=== PATIENT | female | born 1945 | race Caucasian/White ===

== ENCOUNTER 2018-01-24 07:13 | Day surgery (SDC) | payer OTHER ==
[~2018-01-24] VITALS: Ht 149.9 cm; Wt 53.1 kg
[~2018-01-24 07:13] MED LIST: CALC-724 PO; CHOL200013 PO; CINN500C PO; COPPER PO; CYAN50003 PO; KRIL500C PO; MAGN250T2 PO; MONT10TA24 PO; MULT-1203 PO; PRIMROSE PO; RIBO100T3 PO; SODIUM CHLORIDE 0.9% 1000ML 1,000 ML IV ONE; UBID50TA3 PO; VIT1CAPS21 PO; VIT1CAPS25 PO; VITA1CAP PO; ZINC50TA64 PO
[2018-01-24 07:31] VITALS: BP 134/71
[2018-01-24] MEDS ORDERED: PANT40TA25 PO (08:06)
[2018-01-24] MEDS ORDERED: PROPOFOL 10 MG/ML 20ML VIAL IV ONE (08:58)
[2018-01-24 09:17] VITALS: BP 88/42
== END 2018-01-24 09:55 | disposition home or self-care (01) ==
LOC: DAH 07:13
PROVIDERS: ATTEND Internal Medicine Gastroenterology
DX: Z12.11 Encounter for screening for malignant neoplasm of colon (principal); K21.9 Gastro-esophageal reflux disease without esophagitis; D64.89 Other specified anemias; M19.90 Unspecified osteoarthritis, unspecified site; M54.5 Low back pain; Z98.890 Other specified postprocedural states; Z90.710 Acquired absence of both cervix and uterus; Z87.891 Personal history of nicotine dependence; Z79.899 Other long term (current) drug therapy; Z82.49 Family history of ischemic heart disease and other diseases of the circulatory system
CPT/HCPCS: A4606; G0121; J2704; J7030

== ENCOUNTER → 2018-10-17 | Outpatient (CLI) | payer OTHER ==
[~2018-10-17] MED LIST changes: -COPPER PO; +PANT40TA25 PO; -SODIUM CHLORIDE 0.9% 1000ML 1,000 ML IV ONE
[2018-10-17 11:29] LABS: CREATININE 0.8 mg/dL (0.5-1.5)
== END | disposition home or self-care (01) ==
LOC: LAB 10:39
PROVIDERS: ATTEND Internal Medicine
DX: M43.22 Fusion of spine, cervical region (principal)
CPT/HCPCS: 36415; 82565; 84520

== ENCOUNTER → 2018-10-28 | Outpatient (CLI) | payer OTHER ==
[~2018-10-28] MED LIST changes: +IOHEXOL-350 50ML VIAL IV ONE
== END | disposition home or self-care (01) ==
LOC: OIH 09:48
PROVIDERS: ATTEND Internal Medicine
DX: M48.02 Spinal stenosis, cervical region (principal); N20.0 Calculus of kidney; M41.80 Other forms of scoliosis, site unspecified; M47.819 Spondylosis without myelopathy or radiculopathy, site unspecified; R13.10 Dysphagia, unspecified; M43.22 Fusion of spine, cervical region; I70.0 Atherosclerosis of aorta; N32.89 Other specified disorders of bladder
CPT/HCPCS: 72127; 74178; Q9967

== ENCOUNTER → 2019-01-01 | Outpatient (CLI) | payer OTHER ==
[~2019-01-01] MED LIST changes: -IOHEXOL-350 50ML VIAL IV ONE; +OCUVITE SOFTGE1 EACH PO; -VIT1CAPS21 PO
== END | disposition home or self-care (01) ==
LOC: RAH 11:08
PROVIDERS: ATTEND Internal Medicine
DX: Z12.31 Encounter for screening mammogram for malignant neoplasm of breast (principal)
CPT/HCPCS: 77067

== ENCOUNTER → 2020-09-27 | Outpatient (CLI) | payer OTHER ==
[~2020-09-27] MED LIST changes: +CALC-1158 PO; -CALC-724 PO; -MONT10TA24 PO; +MONT10TA96 PO; -PANT40TA25 PO; +PANT40TA54 PO
== END | disposition home or self-care (01) ==
LOC: RAH 11:21
PROVIDERS: ATTEND Internal Medicine
DX: R05 Cough (principal); M41.84 Other forms of scoliosis, thoracic region
CPT/HCPCS: 71046

== ENCOUNTER → 2022-05-08 | Outpatient (CLI) | payer OTHER ==
[~2022-05-08] MED LIST changes: -MAGN250T2 PO; +MAGN250T35 PO; +MONT-39 PO; -MONT10TA96 PO
== END | disposition home or self-care (01) ==
LOC: RAH 08:59
PROVIDERS: ATTEND Internal Medicine
DX: F03.90 Unspecified dementia, unspecified severity, without behavioral disturbance, psychotic disturbance, mood disturbance, and anxiety (principal)
CPT/HCPCS: 70551

== ENCOUNTER 2022-06-14 17:09 | Observation (INO) | payer OTHER ==
[~2022-06-14] VITALS: Ht 142.2 cm; Wt 56.6 kg
[2022-06-14 17:48] LABS: BASOPHILS % (AUTO) 1.5 % (0.0-5.0); EOSINOPHILS % (AUTO) 3.2 % (0.0-8.0); LYMPHOCYTES % (AUTO) 38.3 % (21.0-51.0); MEAN CORPUSCULAR HEMOGLOBIN 29.6 pg (27.0-33.0); MEAN CORPUSCULAR HGB CONC 33.3 g/dL (32.0-36.0); MEAN CORPUSCULAR VOLUME 88.7 fL (79-99); MONOCYTES % (AUTO) 9.5 % (3.0-13.0); NEUTROPHILS % (AUTO) 47.2 % (40.0-77.0); PLATELET COUNT (AUTO) 216 K/uL (130-400); RED BLOOD CELL COUNT(AUTO) 4.06 MIL/uL (4.00-5.50); RED CELL DISTRIBUTION WIDTH 13.4 % (11.0-15.5); WHITE BLOOD COUNT (AUTO) 5.9 K/uL (4.8-10.8)
[2022-06-14 17:58] LABS: CREATININE 0.8 mg/dL (0.5-1.5); POTASSIUM 3.8 mmol/L (3.5-5.1)
[2022-06-14 18:00] LABS: ALBUMIN 3.9 g/dL (3.5-5.0); BILIRUBIN,DIRECT 0.1 mg/dL (0.0-0.3); TOTAL PROTEIN, SERUM 6.9 g/dL (6.0-8.3)
[2022-06-14] MEDS ORDERED: IOHEXOL 350 MG/ML 100ML INFUS..BTL IV ONE (18:34)
[2022-06-14] MEDS ORDERED: ONDANSETRON 4MG INJ IVP PRN (19:30)
[2022-06-14] MEDS: DEXTROSE 5 %-0.45 % NACL 1,000 ML IV SCH (20:27)
[2022-06-14] MEDS ORDERED: CEFTRIAXONE 1G VIAL IVP SCH (21:00)
[2022-06-14] MEDS ORDERED: FAMOTIDINE 20MG TAB PO SCH (21:00)
[2022-06-14] MEDS: METRONIDAZOLE 250MG/50ML 50 ML IV SCH (21:23)
[2022-06-14 21:26] LABS: BASOPHILS % (AUTO) 1.7 % (0.0-5.0); LYMPHOCYTES % (AUTO) 41.6 % (21.0-51.0); MEAN CORPUSCULAR HEMOGLOBIN 29.3 pg (27.0-33.0); MEAN CORPUSCULAR HGB CONC 33.2 g/dL (32.0-36.0); MEAN CORPUSCULAR VOLUME 88.1 fL (79-99); MONOCYTES % (AUTO) 9.6 % (3.0-13.0); NEUTROPHILS % (AUTO) 42.7 % (40.0-77.0); PLATELET COUNT (AUTO) 209 K/uL (130-400); RED BLOOD CELL COUNT(AUTO) 3.86 MIL/uL (4.00-5.50); RED CELL DISTRIBUTION WIDTH 13.5 % (11.0-15.5); WHITE BLOOD COUNT (AUTO) 5.3 K/uL (4.8-10.8)
[2022-06-14 21:42] LABS: CREATININE 0.9 mg/dL (0.5-1.5); POTASSIUM 3.7 mmol/L (3.5-5.1)
[2022-06-14 21:47] LABS: ALBUMIN 3.6 g/dL (3.5-5.0); BILIRUBIN,DIRECT 0.1 mg/dL (0.0-0.3); TOTAL PROTEIN, SERUM 6.4 g/dL (6.0-8.3)
[2022-06-14] MEDS ORDERED: COFF1CAP2 PO (23:27)
[2022-06-14] MEDS ORDERED: VIT1CAPS5 PO (23:27)
[2022-06-14] MEDS ORDERED: DOCU-116 PO (23:27)
[2022-06-14] MEDS ORDERED: SIMV10TA97 PO (23:27)
[2022-06-14] MEDS ORDERED: GABA300C PO (23:27)
[2022-06-14] MEDS ORDERED: MEMA10TA55 PO (23:27)
[2022-06-14] MEDS ORDERED: EVEP1CAP PO (23:27)
[2022-06-14] MEDS ORDERED: CA C1TAB74 PO (23:27)
[2022-06-14] MEDS ORDERED: FAMO-136 PO (23:27)
[2022-06-14] MEDS ORDERED: VITA15LO2 PO (23:27)
[2022-06-14] MEDS ORDERED: METO5TAB2 PO (23:27)
[2022-06-14] MEDS ORDERED: PANT40TA54 PO (23:27)
[2022-06-14] MEDS ORDERED: OMEP20TA20 PO (23:27)
[2022-06-14] MEDS ORDERED: ASCO100T12 PO (23:27)
[2022-06-15 00:02] VITALS: BP 149/83
[2022-06-15] MEDS ORDERED: CA C1TAB74 PO (00:57)
[2022-06-15 03:02] VITALS: BP 160/83
[2022-06-15] MEDS: METRONIDAZOLE 250MG/50ML 50 ML IV SCH (05:36)
[2022-06-15 06:12] LABS: BASOPHILS % (AUTO) 2.1 % (0.0-5.0); EOSINOPHILS % (AUTO) 4.5 % (0.0-8.0); HEMATOCRIT 34.6 % (36-48); LYMPHOCYTES % (AUTO) 37.4 % (21.0-51.0); MEAN CORPUSCULAR HEMOGLOBIN 29.5 pg (27.0-33.0); MEAN CORPUSCULAR HGB CONC 32.9 g/dL (32.0-36.0); MEAN CORPUSCULAR VOLUME 89.4 fL (79-99); MONOCYTES % (AUTO) 11.7 % (3.0-13.0); NEUTROPHILS % (AUTO) 43.9 % (40.0-77.0); PLATELET COUNT (AUTO) 213 K/uL (130-400); RED BLOOD CELL COUNT(AUTO) 3.87 MIL/uL (4.00-5.50); RED CELL DISTRIBUTION WIDTH 13.2 % (11.0-15.5); WHITE BLOOD COUNT (AUTO) 5.3 K/uL (4.8-10.8)
[2022-06-15 06:22] LABS: CREATININE 0.9 mg/dL (0.5-1.5); POTASSIUM 3.7 mmol/L (3.5-5.1)
[2022-06-15 06:26] LABS: ALBUMIN 3.5 g/dL (3.5-5.0); BILIRUBIN,DIRECT 0.1 mg/dL (0.0-0.3); TOTAL PROTEIN, SERUM 6.3 g/dL (6.0-8.3)
[2022-06-15] MEDS: DEXTROSE 5 %-0.45 % NACL 1,000 ML IV SCH (07:50)
[2022-06-15 08:00] VITALS: BP 167/98
[2022-06-15] MEDS ORDERED: PANTOPRAZOLE 40 MG TAB DR PO SCH (09:00)
[2022-06-15 11:48] VITALS: BP 152/84
[2022-06-15] MEDS ORDERED: COMPOUND IV MISC 1 EACH IVSOLN MISC PRN (12:00)
== END 2022-06-15 12:05 | disposition home or self-care (01) ==
LOC: EDH 17:09 → EDHIP 17:49 → 3BH 23:11
PROVIDERS: ADMIT Internal Medicine; ATTEND Internal Medicine
DX: R10.9 Unspecified abdominal pain (principal); K21.9 Gastro-esophageal reflux disease without esophagitis; M19.90 Unspecified osteoarthritis, unspecified site; J44.9 Chronic obstructive pulmonary disease, unspecified; E03.9 Hypothyroidism, unspecified; E78.5 Hyperlipidemia, unspecified; F03.90 Unspecified dementia, unspecified severity, without behavioral disturbance, psychotic disturbance, mood disturbance, and anxiety; R11.2 Nausea with vomiting, unspecified; Z79.899 Other long term (current) drug therapy
CPT/HCPCS: 96372; 96361 ×2; 96365; 96366 ×2; 82150 ×2; 80076 ×3; 80048 ×3; 83690 ×3; 85025 ×3; 36415 ×2; 74177; G0378 ×18; G0379; J7042; J0696; J3490; Q9967

== ENCOUNTER 2023-08-26 08:40 | Emergency (ER) | payer OTHER ==
[~2023-08-26] VITALS: Ht 147.3 cm; Wt 54.0 kg
[~2023-08-26 08:40] MED LIST changes: +ASCO100T12 PO; +CA C1TAB74 PO; -CALC-1158 PO; -CHOL200013 PO; -CINN500C PO; +COFF1CAP2 PO; -CYAN50003 PO; +DOCU-116 PO; +EVEP1CAP PO; +FAMO-136 PO; +GABA300C PO; -KRIL500C PO; -MAGN250T35 PO; +MEMA10TA55 PO; +METO5TAB2 PO; -MONT-39 PO; -MULT-1203 PO; -OCUVITE SOFTGE1 EACH PO; +OMEP20TA20 PO; -PRIMROSE PO; -RIBO100T3 PO; +SIMV10TA97 PO; -UBID50TA3 PO; -VIT1CAPS25 PO; +VIT1CAPS5 PO; +VITA15LO2 PO; -VITA1CAP PO; -ZINC50TA64 PO
[2023-08-26] MEDS ORDERED: ACETAMINOPHEN 500 MG TABLET PO ONE (10:00)
[2023-08-26 10:14] LABS: BASOPHILS # (AUTO) 0.07 K/uL (0.00-0.20); BASOPHILS % (AUTO) 1.2 % (0.0-5.0); EOSINOPHILS # (AUTO) 0.14 K/uL (0.00-0.70); EOSINOPHILS % (AUTO) 2.5 % (0.0-8.0); HEMATOCRIT 33.9 % (36-48); IMMATURE GRANULOCYTE ABSOLUTE 0.01 K/uL (0-1); LYMPHOCYTES # (AUTO) 1.8 K/uL (1.0-4.8); LYMPHOCYTES % (AUTO) 30.9 % (21.0-51.0); MEAN CORPUSCULAR HEMOGLOBIN 29.2 pg (27.0-33.0); MEAN CORPUSCULAR VOLUME 88.5 fL (79-99); MONOCYTES # (AUTO) 0.7 K/uL (0.1-1.0); MONOCYTES % (AUTO) 11.4 % (3.0-13.0); NEUTROPHILS # (AUTO) 3.1 K/uL (1.8-7.7); NEUTROPHILS % (AUTO) 53.8 % (40.0-77.0); PLATELET COUNT (AUTO) 221 K/uL (130-400); RED BLOOD CELL COUNT(AUTO) 3.83 MIL/uL (4.00-5.50); WHITE BLOOD COUNT (AUTO) 5.7 K/uL (4.8-10.8)
[2023-08-26 10:31] LABS: CREATININE 0.8 mg/dL (0.5-1.5); POTASSIUM 4.1 mmol/L (3.5-5.1)
[2023-08-26 10:35] LABS: ALBUMIN 3.5 g/dL (3.5-5.0); BILIRUBIN,TOTAL 0.7 mg/dL (0.2-1.0); TOTAL PROTEIN, SERUM 6.5 g/dL (6.0-8.3)
[2023-08-26 12:22] VITALS: BP 124/68; PULSE 67; RESP 18; O2SAT 96
== END 2023-08-26 13:11 | disposition home or self-care (01) ==
LOC: EDH 08:40
DX: S22.32XA Fracture of one rib, left side, initial encounter for closed fracture (principal); F03.90 Unspecified dementia, unspecified severity, without behavioral disturbance, psychotic disturbance, mood disturbance, and anxiety; Z79.899 Other long term (current) drug therapy; W18.39XA Other fall on same level, initial encounter; Y93.K1 Activity, walking an animal; Y92.89 Other specified places as the place of occurrence of the external cause; Y99.8 Other external cause status
CPT/HCPCS: 36415; 71045; 80053; 82270; 85025

== ENCOUNTER 2025-07-12 15:41 | Emergency (ER) | payer OTHER ==
[~2025-07-12] VITALS: Ht 147.3 cm; Wt 52.2 kg
[~2025-07-12 15:41] MED LIST changes: +MEMA10TA21 PO; -MEMA10TA55 PO
[2025-07-12 16:19] LABS: IMMATURE GRANULOCYTE ABSOLUTE 0.02 K/uL (0-1); NUCLEATED RED BLOOD CELLS 0.0 % (0.0-0.19); PLATELET COUNT (AUTO) 238 K/uL (130-400); RED BLOOD CELL COUNT(AUTO) 3.64 MIL/uL (4.00-5.50); RED CELL DISTRIBUTION WIDTH 13.6 % (11.0-15.5); WHITE BLOOD COUNT (AUTO) 6.4 K/uL (4.8-10.8)
[2025-07-12 16:30] LABS: CREATININE 0.7 mg/dL (0.5-1.0); GLOMERULAR FILTR. RATE CALC 87.0 mL/min (>90); GLUCOSE,RANDOM 87.0 mg/dL (70-105); SODIUM SERUM 144.0 mmol/L (136-145); UREA NITROGEN, BLOOD 27.0 mg/dL (7-18)
--- NOTE | 2025-07-12 16:31 | NUR ---
PT STATES PT HAS ABD PAIN DUE TO CRYING FOR THE PAST FEW DAYS. PT STATES PT IS NONVERBAL DUE TO DEMENTIA. WHEN DOING PRIMARY ASSESSMENT, PT SHOOK HER HEAD AND STATED, "NO" WHEN ASKED IF SHE FELT PAIN IN HER STOMACH. PT STATED SHE NEEDED TO PASS STOOL AT THIS TIME AND BEDPAN WAS OFFERED. PT REFUSED AND STATED, "I THINK YOU NEED TO TAKE HER TO THE RESTROOM." PT EDUCATED ON IMPORTANCE OF USING A BEDPAN OR BEDSIDE COMMODE DUE TO FALL RISK AND UNSTEADY GAIT. PT REFUSED BEDPAN BUT ACCEPTED BEDSIDE COMMODE. BEDSIDE COMMODE PLACED IN ROOM AND PT TRANSFERRED TO COMMODE WITH ASSISTANCE. PT STATES HE WANTS THE PT TO STAY IN BEDSIDE COMMODE FOR A FEW MINUTES SHE IS TELLING HIM SHE NEEDS TO USE THE RESTROOM.
[2025-07-12 16:36] LABS: ASPARTATE AMINOTRANSFERASE 18.0 U/L (10-37); TOTAL PROTEIN, SERUM 6.4 g/dL (6.0-8.3)
[2025-07-12 17:29] LABS: ADD UA MICROSCOPIC YES; APPEARANCE,URINE CLOUDY (CLEAR); GLUCOSE, URINE (UA) NEGATIVE (NEGATIVE); LEUKOCYTE ESTERASE ,URINE NEGATIVE Leu/uL (NEGATIVE); NITRATE,URINE 1+ (NEGATIVE); OCCULT BLOOD,URINE NEGATIVE (NEGATIVE)
[2025-07-12 17:39] LABS: SQUAMOUS EPITHELIAL CELL,UR RARE /HPF (0-2); UNCLASSIFIED CRYSTAL 14 /HPF (None Seen)
--- NOTE | 2025-07-12 17:52 | ERN ---
General Chief Complaint: Abdominal Pain Stated Complaint: ABDOMINAL PAIN Time Seen by MD: 15:42 Source: patient History of Present Illness Initial Comments Patient is a an 79-year-old female coming in to be evaluated for abdominal pain. Per has been patient has a history of dementia but he states that she has been having abdominal pain for a couple of days. Allergies: Coded Allergies: pregabalin (Verified Allergy, Unknown, 06/14/22) thimerosal (Verified Allergy, Unknown, 04/02/14) Home Meds Reported Medications Ca Cmb 1/Vit D3/B-6/FA/B12/Av (Vitamin D3-Aloe 1,000 Unit Tab) 1 Each Tablet, 1 EACH PO DAILY, TAB 06/15/22 Coffee/Theanine/Superoxide Dis (Neuriva De-Stress Capsule) 1 Each Capsule, 1 EACH PO AD, CAP 06/14/22 Vitamin A/Vit C/Zinc/Propolis (Zinc 15 mg Lozenges) 15 Mg Lozenge, 15 MG PO DAILY, ADALBERTO 06/14/22 Ascorbic Acid (Vitamin C) 100 Mg Tablet, 100 MG PO DAILY, TAB 06/14/22 Evepr/Linoleic/Gamolenic/Cranb (Evening Fenton Oil Softgel) 1 Each Capsule, 1 EACH PO DAILY, CAP 06/14/22 Vit A/Vit C/Vit E/Zinc/Copper (Preservision Areds Softgel) 1 Each Capsule, 1 EACH PO AD, CAP 06/14/22 Famotidine (Pepcid) 20 Mg Tablet, 20 MG PO DAILY, TAB 06/14/22 Docusate Sodium (Colace) 100 Mg Capsule, 100 MG PO DAILY PRN for CONSTIPATION, CAP 06/14/22 Gabapentin (Neurontin) 300 Mg Capsule, 300 MG PO TID, CAP 06/14/22 Memantine HCl (Memantine HCl) 10 Mg Tablet, 10 MG PO DAILY, TAB 06/14/22 Metoclopramide HCl (Metoclopramide HCl) 5 Mg Tablet, 5 MG PO TIDAC, TAB 06/14/22 Omeprazole (Omeprazole) 20 Mg Tablet.dr, 20 MG PO DAILY, TAB 06/14/22 Pantoprazole Sodium (Pantoprazole Sodium) 40 Mg Tablet.dr, 40 MG PO DAILY, TAB 06/14/22 Simvastatin (Simvastatin) 10 Mg Tablet, 10 MG PO HS, TAB 06/14/22 Past Medical History Past Medical History: Dementia Medical History Other: CHRONIC BACK PAIN Past Surgical History: Hysterectomy Surgical History Other: BACK SX ROS Dictation CONSTITUTIONAL: No chills, no fever, no weakness, no diaphoresis, no malaise. HEAD/FACE: No signs of trauma. EENT: No eye pain, no blurred vision, no tearing, no double vision, no ear pain, no ear discharge, no nose pain, no nasal congestion, no throat pain, no throat swelling, no mouth pain. RESPIRATORY: No cough, no orthopnea, no SOB, no stridor, no wheezing. CARDIOVASCULAR: No chest pain, no edema, no palpitations, no syncope. GASTROINTESTINAL/ABDOMINAL: No abdominal pain, no constipation, no diarrhea, no nausea, no vomiting. GENITOURINARY: No abnormal discharge, no dysuria, no frequent urination, no hematuria. No complaints of pain in the genitals. MUSCULOSKELETAL: No back pain, no gout, no joint pain, no joint swelling, no muscle pain, no muscle stiffness, no neck pain. INTEGUMENTARY: No change in color, no change in hair/nails, no dryness, no lesion, no lumps, no rash. NEUROLOGICAL/PSYCH: No anxiety, not depressed, no emotional problem, no headache, no numbness, no pre-existing deficit, no history of seizures, no tremors, no weakness. HEMATOLOGIC/LYMPHATIC: Not anemic, no history of blood clots, no apparent bleeding, no bruising, glands not swollen. All Systems Negative, Except as Noted. Physical Exam Physical Exam Dictation VITAL SIGNS: Reviewed. GENERAL APPEARANCE: Alert, oriented x3, no acute distress, obese. HEAD AND FACE: Non-traumatic. EYES: PERRL, pink conjunctivas, eyelid no trauma, anterior chamber clear. EARS: Pinnas intact and no signs of trauma or erythema. Ear canals clear and no discharge. TMs no erythema. NOSE: No discharge, no bleeding. OROPHARYNX: Mouth normal, teeth no caries, tongue pink. Pharynx clear, no erythema. Tonsils no exudates, no abscesses noted. Mucous membrane moist. NECK: Supple, non-tender, no thyromegaly, no masses, no JVD, no bruits. BREAST: Deferred. CHEST: No tenderness, no crepitus, no paradoxical movement, no retractions. LUNGS: Clear, well-ventilated, symmetric, no rales, no wheezing, no rhonchi, no stridor, good breath sounds bilaterally. HEART: Regular rate, regular rhythm, no murmur, no gallops. VASCULAR: No peripheral edema. ABDOMEN: Soft, positive bowel sounds, nondistended, no guarding, nontender, no rebound, no masses no hepatomegaly, no splenomegaly, no Rader's sign, no hernias. RECTAL: Deferred. GENITAL: Deferred. NEUROLOGICAL: Normal speech, gross motor function intact, gross sensory function intact. MUSCULOSKELETAL: Neck nontender, full range of motion, back nontender, full range of motion. EXTREMITIES: Nontender, full range of motion. SKIN: Color pink, dry, no turgor, no rash, no lacerations, no abrasions, no contusions. LYMPHATICS: Deferred. Results Laboratory and Microbiology Lab and Micro Result Laboratory Tests Test 07/12/25 16:13 07/12/25 17:20 White Blood Count 6.4 K/uL (4.8-10.8) Red Blood Count 3.64 MIL/uL (4.00-5.50) L Hemoglobin 11.0 g/dL (12.0-16.0) L Hematocrit 33.6 % (36-48) L Mean Corpuscular Volume 92.3 fL (79-99) Mean Corpuscular Hemoglobin 30.2 pg (27.0-33.0) Mean Corpuscular Hemoglobin Concent 32.7 g/dL (32.0-36.0) Red Cell Distribution Width 13.6 % (11.0-15.5) Platelet Count 238 K/uL (130-400) Mean Platelet Volume 9.6 fL (7.5-10.5) Immature Granulocyte % (Auto) 0.3 % (0-1) Neutrophils (%) (Auto) 50.9 % (40.0-77.0) Lymphocytes (%) (Auto) 33.2 % (21.0-51.0) Monocytes (%) (Auto) 10.7 % (3.0-13.0) Eosinophils (%) (Auto) 3.3 % (0.0-8.0) Basophils (%) (Auto) 1.6 % (0.0-5.0) Neutrophils # (Auto) 3.3 K/uL (1.8-7.7) Lymphocytes # (Auto) 2.1 K/uL (1.0-4.8) Monocytes # (Auto) 0.7 K/uL (0.1-1.0) Eosinophils # (Auto) 0.21 K/uL (0.00-0.70) Basophils # (Auto) 0.10 K/uL (0.00-0.20) Absolute Immature Granulocyte (auto 0.02 K/uL (0-1) Nucleated Red Blood Cells 0.0 % (0.0-0.19) Sodium Level 144 mmol/L (136-145) Potassium Level 3.6 mmol/L (3.5-5.1) Chloride Level 107 mmol/L (101-111) Carbon Dioxide Level 30 mmol/L (21-32) Blood Urea Nitrogen 27 mg/dL (7-18) H Creatinine 0.7 mg/dL (0.5-1.0) Glomerular Filtration Rate Calc 87 mL/min (>90) Random Glucose 87 mg/dL (70-105) Total Calcium 8.7 mg/dL (8.5-10.1) Total Bilirubin 0.3 mg/dL (0.2-1.0) Aspartate Amino Transf (AST/SGOT) 18 U/L (10-37) Alanine Aminotransferase (ALT/SGPT) 23 U/L (12-78) Alkaline Phosphatase 72 U/L (50-136) Total Protein 6.4 g/dL (6.0-8.3) Albumin 3.5 g/dL (3.5-5.0) Lipase 88 U/L (16-77) H Urine Color LIGHT-YELLOW (YELLOW) Urine Appearance CLOUDY (CLEAR) H Urine pH 7.0 (5.0-8.0) Urine Specific Kila 1.016 (1.001-1.031) Urine Protein NEGATIVE mg/dL (NEGATIVE) Urine Glucose (UA) NEGATIVE mg/dL (NEGATIVE) Urine Ketones NEGATIVE mg/dL (NEGATIVE) Urine Occult Blood NEGATIVE (NEGATIVE) Urine Nitrate 1+ (NEGATIVE) H Urine Bilirubin NEGATIVE mg/dL (NEGATIVE) Urine Urobilinogen 0.2 mg/dL (0.2-1.0) Urine Leukocyte Esterase NEGATIVE Wally/uL Urine RBC 2-5 /HPF (0-1) H Urine WBC 2-5 /HPF (0-1) H Urine Squamous Epithelial Cells RARE /HPF (0-2) Urine Other Crystals (Auto) 14 /HPF (None Seen) Urine Amorphous Crystals (Auto) FEW /LPF (None Seen) Urine Bacteria FEW /HPF (None Seen) Labs Reviewed?: Yes EKG/XRAY/US/CT/MRI CT Scan Comment REASON: [facility] PAIN ORDERING PHYSICIAN: TESSA HINSON MD PROCEDURE: ABD PEL WO - CT ABDOMEN/PELVIS W/O CONTRAST EXAM: CT Abdomen and Pelvis Without IV Contrast. CLINICAL HISTORY: Abdominal pain. TECHNIQUE: Axial computed tomography images of the abdomen and pelvis without intravenous contrast. CONTRAST: No IV contrast. COMPARISON: CT Abdomen/Pelvis with Contrast ??? 06/14/22 FINDINGS: LUNG BASES: The lung bases appear clear. No pleural effusions are seen. Elevation of the left hemidiaphragm, suggestive of eventration. No obvious diaphragmatic hernia is evident. LIVER: Unremarkable. GALLBLADDER AND BILE DUCTS: The gallbladder appears within normal limits. No radiopaque gallstones are seen. No biliary ductal dilatation is evident. PANCREAS: Unremarkable. SPLEEN: Unremarkable. ADRENAL GLANDS: Unremarkable. KIDNEYS, URETERS, AND BLADDER: The kidneys appear within normal limits. There is no hydronephrosis or hydroureter. No urinary calculi are seen. STOMACH AND BOWEL: Unremarkable appearance of the stomach and bowel. No evidence of bowel obstruction. No findings to suggest enteritis or colitis. APPENDIX: No evidence of acute appendicitis on CT examination. PERITONEUM: No free fluid. No free air. LYMPH NODES: No lymphadenopathy is evident. REPRODUCTIVE: The uterus is presumed surgically absent. VASCULATURE: No evidence of abdominal aortic aneurysm. Atherosclerotic calcifications in the aorta. BONES: No aggressive-appearing osseous lesion. No acute osseous pathology evident. Epidural indwelling catheter in situ. Lumbosacral transitional vertebra is seen. Marked degenerative changes in the visualized spine with levoscoliotic deformity. IMPRESSION: 1. No acute intraabdominal or pelvic pathology. 2. Elevation of the left hemidiaphragm, suggestive of eventration. 3. Epidural indwelling catheter in situ. /[place] DICTATED BY: MONTSE VILLEGAS Jr., MD DATE: 07/12/252001 ELECTRONICALLY SIGNED BY: MONTSE VILLEGAS Jr., MD DATE: 07/12/252001 [facility] Differential diagnosis: Constipation, diverticulitis, kidney stone, UTI, indigestion 7:00 p.m. patient was signed out to me by a.m. physician This is an 79-year-old female with chronic back pain, advanced dementia at baseline is nonverbal noncommunicative. Apparently was crying frequently today and showing her lower abdomen. did not know what to do and brought her in for evaluation. Patient is very pleasantly demented answers 1-2 words intermittently. No nausea vomitings diarrhea hematemesis or melena. Her last bowel movement was yesterday which was a small stool Temperature 98.7 pulse 66 respirations 18 blood pressure 135/75 with a pulse oximetry of 97% on room air Reviewed labs CBC is with a normal limits BNP 7 is also quite acceptable with a glucose of 87. CT scan of the abdomen and pelvis was done which was pending at the time of sign-out CT imaging was eventually resulted and there was no evidence of any acute intra- abdominal process. Urinalysis is also unremarkable. I updated the and went through all the labs and CT imaging studies and still feel that the patient may have stool and I have recommended observing her for a little longer and give her a trial of enema. 8:50 p.m. patient had a bowel movement and she was smiling and appeared much more comfortable and has been is ready to take her home Rationale: Tests considered and ordered secondary to shared decision making include: Previous outside records reviewed: Old ER visits. Risk of complication and/or morbidity or mortality of patient management: None Medications-Per medication reconciliation Need for hospitalization: Patient does not meet criteria for hospitalization. Need for emergency major/minor surgery: No There are no social concerns with this patient. Prescription drug management Prescriptions will include symptomatic care Patient's prior external medical records from other ER visits were reviewed by me as indicated. Prior testing and results from previous visits were reviewed. Prior tests were taken into account with medical decision making and resource utilization, independent historian/historians were used to obtain complete [facility] history. I independently interpreted the test that were performed, results were reviewed by me and considered findings on radiology if ordered. Medical management and examination interpretation discussions were had by me with other qualified healthcare professionals as indicated for the patient's care. ED Course Orders Procedure Category Date Status Time Cbc With Differential LAB 07/12/25 Complete 16:03 Comprehensive LAB 07/12/25 Complete Metabolic Panel 16:03 Urinalysis Profile LAB 07/12/25 Complete 16:03 Ct Abdomen/Pelvis W/O CT 07/12/25 Resulted Contrast 16:03 Lipase LAB 07/12/25 Complete 16:03 Culture Urine ALYSSA 07/12/25 In Process 17:30 *Nursing CPOE 07/12/25 Transmitted Communication: 19:44 Vital Signs Date Time Temp Pulse Resp B/P (MAP) Pulse Ox O2 Delivery O2 Flow Rate FiO2 07/12/25 19:40 98.2 67 20 133/89 97 Room Air* 0 21 07/12/25 16:00 98.6 67 20 140/83 99 Room Air* 0 07/12/25 15:42 98.8 66 18 135/75 97 Room Air We will plan to discharge her to follow up with her primary care physician. DX & DISP Disposition: Discharge Departure Impression: Primary Impression: Diffuse abdominal pain Additional Impressions: Constipation, Advanced dementia Condition: Stable Additional Instructions: Patient and the caregiver have been informed of all the diagnostic tests and the imaging conducted during the today's visit to the emergency room and has verbalized understanding of the results I have personally reviewed and interpreted all diagnostic exams performed here in the ER today as well as the vital signs documented by the nursing staff. The patient is now being discharged to home and should follow up with the primary care physician or the specialist as directed by the ER staff. Follow-up with primary care provider in 1 to 2 days. Take medications as directed here in the emergency room. Okay to continue home medications unless otherwise discussed during your visit in the emergency room today. Return to your nearest emergency room if symptoms worsen or if there is no improvement. Call 911 if you need immediate assistance. Take Tylenol or Motrin [id number] as needed and if no contraindications are present. Increase oral hydration. A wound culture or urine culture was ordered here in the emergency room department please follow-up with primary care provider and advise them to get repeat ports from our facility. If you had any Ernesto wrap/splints that were applied here, please do not remove them until you see your primary care or specialty. Referrals: LESLY PINK MD (PCP) TESSA HINSON MD Jul 12, 2025 17:52 KIMBERLY CARRERO MD Jul 12, 2025 19:31
--- NOTE | 2025-07-12 19:03 | HMCIMG ---
EXAM: CT Abdomen and Pelvis Without IV Contrast. CLINICAL HISTORY: Abdominal pain. TECHNIQUE: Axial computed tomography images of the abdomen and pelvis without intravenous contrast. CONTRAST: No IV contrast. COMPARISON: CT Abdomen/Pelvis with Contrast ??? 06/14/22 FINDINGS: LUNG BASES: The lung bases appear clear. No pleural effusions are seen. Elevation of the left hemidiaphragm, suggestive of eventration. No obvious diaphragmatic hernia is evident. LIVER: Unremarkable. GALLBLADDER AND BILE DUCTS: The gallbladder appears within normal limits. No radiopaque gallstones are seen. No biliary ductal dilatation is evident. PANCREAS: Unremarkable. SPLEEN: Unremarkable. ADRENAL GLANDS: Unremarkable. KIDNEYS, URETERS, AND BLADDER: The kidneys appear within normal limits. There is no hydronephrosis or hydroureter. No urinary calculi are seen. STOMACH AND BOWEL: Unremarkable appearance of the stomach and bowel. No evidence of bowel obstruction. No findings to suggest enteritis or colitis. APPENDIX: No evidence of acute appendicitis on CT examination. PERITONEUM: No free fluid. No free air. LYMPH NODES: No lymphadenopathy is evident. REPRODUCTIVE: The uterus is presumed surgically absent. VASCULATURE: No evidence of abdominal aortic aneurysm. Atherosclerotic calcifications in the aorta. BONES: No aggressive-appearing osseous lesion. No acute osseous pathology evident. Epidural indwelling catheter in situ. Lumbosacral transitional vertebra is seen. Marked degenerative changes in the visualized spine with levoscoliotic deformity. IMPRESSION: 1. No acute intraabdominal or pelvic pathology. 2. Elevation of the left hemidiaphragm, suggestive of eventration. 3. Epidural indwelling catheter in situ. /[place]
--- NOTE | 2025-07-12 20:03 | NUR ---
ENEMA GIVEN ORDERED
[2025-07-12 21:14] VITALS: BP 128/82; PULSE 63; RESP 18; TEMP 98.3; O2SAT 97
--- NOTE | 2025-07-12 21:15 | NUR ---
PATIENT HAD LARGE BOWEL MOVEMENT
== END 2025-07-12 21:16 | disposition home or self-care (01) ==
LOC: EDH 15:41
DX: R10.84 Generalized abdominal pain (principal); K59.00 Constipation, unspecified; F03.90 Unspecified dementia, unspecified severity, without behavioral disturbance, psychotic disturbance, mood disturbance, and anxiety; Z79.899 Other long term (current) drug therapy; Z90.710 Acquired absence of both cervix and uterus
CPT/HCPCS: 36415; 74176; 80053; 81001; 83690; 85025; 87086; 87186; 99284